=== PATIENT | female | born 1995 | race Caucasian/White ===

== ENCOUNTER → 2020-09-23 12:35 | Outpatient (CLI) | payer OTHER, SELFPAY ==
--- NOTE | ~2020-09-23 | XR_ITS ---
EXAMINATION: XR foot LT 2V EXAM DATE: 09/23/2020 12:56 INDICATION: Initial encounter following injury, with pain of the left foot. TECHNIQUE: Frontal and lateral projections of the left foot. There is no prior study for comparison . FINDINGS: There are no acute left foot fractures or dislocations identified. There is no subcutaneou s gas. The soft tissue is unremarkable. There are no radiopaque foreign bodies. IMPRESSION: 1. Unremarkable XR foot LT 2V exam. Reviewed, dictated and finalized at location B.
== END ==
PROVIDERS: PCP Family Medicine; Visit Provider Physician Assistant
DX: S99.929A Unspecified injury of unspecified foot, initial encounter (principal)
CPT/HCPCS: 73620

== ENCOUNTER → 2021-01-22 07:51 | Outpatient (CLI) | payer OTHER, SELFPAY ==
[2021-01-22 18:14] LABS: SARS-CoV-2 RNA PCR Negative
== END ==
PROVIDERS: PCP Family Medicine; Visit Provider Physician Assistant
DX: R05 Cough (principal); Z20.822 Contact with and (suspected) exposure to COVID-19
CPT/HCPCS: C9803; U0003; U0005

== ENCOUNTER 2023-04-14 09:46 | Outpatient (RCR) | payer BC, SELFPAY ==
--- NOTE | 2023-04-14 10:51 | OPREHPOC ---
Outpatient Therapy Plan of Care This is a Multidisciplinary Plan of Care that may contain components documented by all disciplines (PT, OT, and ST.) PT Problem 1 PT Problem #1 Knowledge Deficit PT Goal 1 Goal 1* indep with HEP 2* good posture of neck during sessions PT Problem 2 PT Problem #2 Pain PT Goal 1 Goal 1* pt report pain of 2/10 at worst in neck PT Problem 3 PT Problem #3 Impaired Vestibular Syste PT Goal 1 Goal pt perform without any issues: 1* turn head R/L, 3x with walking 50' 2* pick item up off floor 3* 360' turn to R x1 rep 4* 360' turn to L x1 rep 5* Dizziness Handicap Index score of 20/100 6* further assessment of vestibular system as indicated with progression of treatment
--- NOTE | 2023-04-14 10:51 | PTOPEVAL1 ---
Assessment and note entered by Jessica Haynes, PT Evaluation Information Assessment Status Evaluation Diagnosis dizziness Onset Mar 22, 2023 Subjective Information In July 2022: was dizzy about one week, then off/ on random since then; had another week of issues at start of month- woke up from sleep and was dizzy; have been sleeping with several pillows to prop her head up; hearing is OK, little ear pressure right now; does have sharp, achy pain in both ears, can hear crackle and pops sounds; not had hearing test; have contacts, vision is OK, but with vertigo, lights bother me--overhead lights and drive at night; no allergies or sinus infections saw ENT- sent for physical therapy, given meclazine and steroid, allergy meds- to dry out ears increase with leaning over to pet dog and when tilt head backwards; Symptoms: dizzy ease symptoms: hold still; after steroids--did not have any problems; L[facility] [place] testing: to R negative- report pressure in R ear, no nystagmus/ to L negative; Horizontal canal testing: to R and L negative, no nystagmus; Eye tracking & gaze stabilization negative. 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
--- NOTE | 2023-05-24 11:54 | PTOPDC ---
Assessment and note entered by Jessica Haynes, PT Discharge Information Assessment PT Clinical Summary Sina attended the PT evaluation on 04-14-23 for vestibular diagnosis. She did not return for any further treatment, therefore she will be discharged at this time. The goals were not addressed. Plan of Care PT Services Indicated No
== END 2023-05-24 12:41 | disposition home or self-care (01) ==
LOC: ANHPT 09:46
PROVIDERS: PCP Family Medicine; Visit Provider Physician Assistant
DX: R42 Dizziness and giddiness (principal)
CPT/HCPCS: 97161; 97530

== ENCOUNTER 2023-08-04 21:38 | Emergency (ER) | payer BC, SELFPAY ==
[2023-08-04 21:48] VITALS: BP 144/105; PULSE 106; RESP 15; TEMP 36.4; O2SAT 100
--- NOTE | 2023-08-04 22:59 | ECG_ITS ---
Measurements Intervals [place] Rate: 85 P: 35 [place]: 147 QRS: -29 QRSD: 91 T: 25 QT: 358 QTc: 427 Interpretive Statements SINUS RHYTHM DELAYED PRECORDIAL R/S TRANSITION LOW QRS VOLTAGE IN PRECORDIAL LEADS BORDERLINE ECG NO PREVIOUS ECG AVAILABLE FOR COMPARISON Electronically Signed On 08-05-2023 7:51:22 CDT by Salo Rodriguez D.O.
--- NOTE | 2023-08-04 23:05 | ED.GENADULT ---
HPI - General Adult General Chief complaint: Recheck/Abnormal Lab/Rx Stated complaint: HTN Time Seen by Provider: 08/04/23 22:52 History of Present Illness HPI narrative: Patient 28-year-old female who presents emerged from with chief complaint of hypertension. Patient reports that she has prior history of hypertension reports that she started Topamax and some vitamin and mineral supplementation about a week ago patient states that she noticed that her blood pressure has been running higher even though she is taking her labetalol. The patient reports that she has had having any chest pain denies shortness of breath denies headache focal weakness or other complaint. The patient states that she called her clinic business manager who told her that she should not be concerned and then called her primary doctor who recommended that she come to the emergency department. The patient states that other than the blood pressure being elevated she feels okay at this time. Related Data Home Medications Medication Instructions Recorded Confirmed meclizine 25 mg tablet 25 mg PO BID PRN 03/29/23 06/26/23 cetirizine 10 mg tablet 10 mg PO DAILY PRN 04/11/23 06/26/23 selenium 50 mcg tablet 100 mcg PO DAILY 04/11/23 06/26/23 Allergies Allergy/AdvReac Type Severity Reaction Status Date / Time ciprofloxacin Allergy Unknown Rash Verified 06/26/23 15:47 Sulfa (Sulfonamide Allergy Unknown rash Verified 06/26/23 15:47 Antibiotics) Review of Systems Review of Systems: A 10 system review of systems was completed on the patient and is negative except for what is stated in the HPI. Nursing and ancillary documentation was reviewed. PMFSH Past Medical History Medical History Hypertension Family History Family History Grandparent Hypertension Depression Sibling Hypertension Father Hypertension Grandparent Diabetes mellitus Hypertension Depression Social History Social History Smoking status: Never smoker Second hand tobacco smoke exposure: No Alcohol intake: current Alcohol use details: rare Substance use: never Substance use type: does not use Lack of Transportation: No Lack of Food: Never True Current Housing: I Have Housing Concerned About Future Housing: No Difficulty Paying Gas/Electric Bills: No Difficulty Paying for Meds: No Currently Unemployed: No Education: High School Diploma/GED Difficulty w/ Childcare or Family Care: No Living arrangements: alone Occupation/Education: occupation Gender identity (if verbalized by the patient): Female Exam Narrative: GENERAL: Well-appearing, well-nourished, and in no acute distress. HEAD: Normocephalic, atraumatic. EYES: PERRLA and EOMI. ENT: Nares clear, no rhinorrhea or epistaxis. Mucous membranes moist. NECK: Supple. CHEST: Clear to auscultation. No respiratory distress. HEART: Regular rate and rhythm. No murmur heard. Normal peripheral pulses. ABDOMEN: Soft, nontender, nondistended, normal active bowel sounds. EXTREMITIES: Normal range of motion. No edema. SKIN: Warm, dry, no rash. NEURO: No focal deficits. Alert and oriented x3. PSYCH: Normal mood and affect. Course Vital Signs Vital signs: Vital Signs Temperature 36.4 C L 08/04/23 21:48 Pulse Rate 106 H 08/04/23 21:48 Respiratory Rate 15 08/04/23 21:48 Blood Pressure 144/105 H 08/04/23 21:48 Pulse Oximetry 100 08/04/23 21:48 Temperature 36.4 C L 08/04/23 21:48 Pulse Rate 74 08/05/23 02:46 Respiratory Rate 18 08/05/23 02:46 Blood Pressure 120/90 08/05/23 02:46 Pulse Oximetry 99 08/05/23 02:46 Medical Decision Making MDM Narrative Medical decision making narrative: Differential diagnosis includes hypertensive crisis, electrolyte abnormality, es
[2023-08-04 23:16] VITALS: BP 127/88; PULSE 79; RESP 23; O2SAT 100
[2023-08-04 23:18] LABS: Basophils Percent Auto 0.7 % (0.2-1.2); Eosinophils Absolute Auto 0.1 K/mm3 (0-0.3); Eosinophils Percent Auto 1.6 % (0-4.4); Hematocrit 42.6 % (37.0-47.0); Hemoglobin 13.6 g/dL (12.0-15.0); Immature Granulocyte Absolute 0.02 K/mm3 (0.00-0.031); Immature Granulocyte Percent A 0.4 % (0-0.5); Lymphocytes Absolute Auto 2.04 K/mm3 (0.9-3.2); Lymphocytes Percent Auto 35.8 % (18.3-44.2); Mean Corpuscular HGB Conc 31.9 g/dl (32-36); Mean Corpuscular Hemoglobin 28.9 pg (26-34); Mean Corpuscular Volume 90.4 fl (80-100); Mean Platelet Volume 9.3 fl (7.4-10.4); Monocytes Absolute Auto 0.4 K/mm3 (0.1-0.6); Monocytes Percent Auto 7.2 % (2.6-8.5); Neutrophils Absolute Auto 3.1 K/mm3 (1.3-6.7); Neutrophils Percent Auto 54.3 % (45.5-73.1); Platelet Count Result 306 k/mm3 (150-375); Red Blood Count 4.71 M/mm3 (4.2-5.4); Red Cell Distribution Width 12.2 % (11.5-14.5); White Blood Count 5.7 K/mm3 (4.5-10.0)
[2023-08-04 23:30] LABS: Alanine Aminotransferase 31 U/L (6-35); Albumin Level 4.8 g/dL (3.5-5.1); Alkaline Phosphatase 81 U/L (38-126); Anion Gap 9 mmol/L (8-16); Aspartate Amino Transferase 28 U/L (14-36); Bilirubin,Total 0.7 mg/dL (0.2-1.3); Blood Urea Nitrogen 10 mg/dL (7-17); Calcium 10.2 mg/dL (8.4-10.2); Carbon Dioxide 23 mmol/L (22-30); Chloride 106 mmol/L (98-107); Estimated CRCL calculation 108 ml/min; Estimated Glomerular Filt Rate > 60; Glucose 120 mg/dL (65-110); Potassium 3.9 mmol/L (3.4-5.0); Sodium 138 mmol/L (137-145)
[2023-08-04 23:31] VITALS: BP 121/90; PULSE 81; RESP 19; O2SAT 99
[2023-08-04 23:46] VITALS: BP 121/86; PULSE 85; RESP 18; O2SAT 100
[2023-08-05] VITALS (10 sets, daily range): BP systolic 109–129; BP diastolic 81–98; PULSE 74–103; RESP 15–25; O2SAT 93–100
[2023-08-05 00:41] LABS: Appearance Urine Clear (Clear); Bilirubin Urine Negative (Negative); Blood Urine Negative (Negative); Color Urine Yellow (Yellow); Glucose Urine UA Negative (Negative); Ketones Urine Negative (Negative); Leukocyte Esterase Ur Negative LEU/UL (Negative); Nitrate Urine Negative (Negative); Protein Urine Negative (Negative); Urobilinogen Urine 0.2 mg/dL (<2.0); pH Urine 6.5 (5.0-9.0)
[2023-08-05 00:43] LABS: Specific Grav Ur 1.003 (1.001-1.035)
[2023-08-05 01:08] LABS: Add Urine Microscopic? NO
== END 2023-08-05 03:49 | disposition home or self-care (01) ==
PROVIDERS: Emergency Provider Emergency Medicine; PCP Family Medicine
DX: I10 Essential (primary) hypertension (principal); R94.31 Abnormal electrocardiogram [ECG] [EKG]
CPT/HCPCS: 36415; 80053; 81025; 85025; 93005; 99283

== ENCOUNTER 2023-12-01 10:27 | Outpatient (CLI) | payer BC, SELFPAY ==
[2023-12-01 11:09] LABS: Hemoglobin A1C 5.4 % (<5.7)
[2023-12-01 11:37] LABS: Alanine Aminotransferase 23 U/L (6-35); Albumin Level 4.8 g/dL (3.5-5.1); Alkaline Phosphatase 71 U/L (38-126); Anion Gap 13 mmol/L (4-12); Aspartate Amino Transferase 25 U/L (14-36); Bilirubin,Total 0.5 mg/dL (0.2-1.3); Blood Urea Nitrogen 13 mg/dL (7-17); Calcium 9.8 mg/dL (8.4-10.2); Carbon Dioxide 25 mmol/L (22-30); Chloride 103 mmol/L (98-107); Estimated Glomerular Filt Rate > 60; Glucose 113 mg/dL (65-110); Potassium 4.2 mmol/L (3.4-5.0); Sodium 141 mmol/L (137-145)
== END 2023-12-01 10:28 | disposition home or self-care (01) ==
LOC: ANHLAB 10:28
PROVIDERS: PCP Family Medicine; Visit Provider Physician Assistant Medical
DX: R73.03 Prediabetes (principal); E78.2 Mixed hyperlipidemia
CPT/HCPCS: 36415; 80053; 83036; 86337

== ENCOUNTER 2023-12-01 15:49 | Emergency (ER) | payer BC, SELFPAY ==
[2023-12-01 16:14] VITALS: BP 142/90; PULSE 78; RESP 16; TEMP 36.5; O2SAT 100
[2023-12-01 16:20] LABS: Glucose Point of Care 118 mg/dl (65-105)
--- NOTE | 2023-12-01 17:37 | ED.GENADULT ---
HPI - General Adult General Chief complaint: Recheck/Abnormal Lab/Rx <Malia Brandon September MEDICAL APPOINTMENT SCHEDULER - Last Filed: 12/01/23 17:50> Stated complaint: low blood sugar, can't control it <Malia Brandon September MEDICAL APPOINTMENT SCHEDULER - Last Filed: 12/01/23 17:50> Time Seen by Provider: 12/01/23 17:37 <Malia Brandon September MEDICAL APPOINTMENT SCHEDULER - Last Filed: 12/01/23 17:50> Focused HPI: Sina Minaya is a 28 y/o female who presents with reports of waking up today with a low blood sugar of 45, she states that she woke up feeling tired/ hot / clammy / light headed and legs are jelly - ( one of her pets was diabetic sp she has a glucometer) She states that she felt this way again this past Monday. She had another drop today to 56 She also states she has been having right lower back pain that started today. GENERAL: Well-appearing, well-nourished, and in no acute distress. HEAD: Normocephalic, atraumatic. CHEST: Clear to auscultation. ?No respiratory distress. HEART: Regular rate and rhythm.? NEURO: ?Alert and oriented x3. Patient screened in triage and initial orders placed.? ?Additional care and disposition to be based upon?diagnostic testing and treatment. <Malia Brandon September, MEDICAL APPOINTMENT SCHEDULER - Last Filed: 12/01/23 17:50> History of Present Illness HPI narrative: 28-year-old female present to the emergency department for evaluation of 2 episodes of hypoglycemia are measured by her home glucometer. Patient states that the episode this morning was associated with her feeling tired hot clammy lightheaded and weak. Patient states that she checked her blood sugar and it was 45. Patient presented the emergency department for evaluation and patient had no episodes of hypoglycemia. Patient is not diabetic and patient has not been on any diabetic or weight loss medications. <Mark Porter MD - Last Filed: 12/02/23 04:34> Related Data Home medications: Home Medications Medication Instructions Recorded Confirmed meclizine 25 mg tablet 25 mg PO BID PRN 03/29/23 12/01/23 cetirizine 10 mg tablet 10 mg PO DAILY PRN 04/11/23 12/01/23 selenium 50 mcg tablet 100 mcg PO DAILY 04/11/23 12/01/23 <Malia Conti, MEDICAL APPOINTMENT SCHEDULER - Last Filed: 12/01/23 17:50> Allergies/adverse reactions: Allergies Allergy/AdvReac Type Severity Reaction Status Date / Time ciprofloxacin Allergy Unknown Rash Verified 12/01/23 15:51 Sulfa (Sulfonamide Allergy Unknown rash Verified 12/01/23 15:51 Antibiotics) <Malia Conti, MEDICAL APPOINTMENT SCHEDULER - Last Filed: 12/01/23 17:50> Review of Systems Review of Systems: All systems reviewed & are unremarkable except as noted in HPI and below <Mark Porter MD - Last Filed: 12/02/23 04:34> [facility] Past Medical History Medical History: Medical History Hypertension <Malia Conti MEDICAL APPOINTMENT SCHEDULER - Last Filed: 12/01/23 17:50> Family History Family History: Family History Grandparent Hypertension Depression Sibling Hypertension Father Hypertension Grandparent Diabetes mellitus Hypertension Depression <Malia Conti, MEDICAL APPOINTMENT SCHEDULER - Last Filed: 12/01/23 17:50> Social History Social History: Social History Smoking status: Never smoker Second hand tobacco smoke exposure: No Alcohol intake: current Alcohol use details: rare Substance use: never Substance use type: does not use Lack of Transportation: No Lack of Food: Never True Current Housing: I Have Housing Concerned About Future Housing: No Difficulty Paying Gas/Electric Bills: No Difficulty Paying for Meds: No Currently Unemployed: No Education: High School Diploma/GED Difficulty w/ Childcare or Family Care: No Living arrangements: alone Occupation/Education: occupation Gender identity (if verbalized by the patient): Female <Malia Conti MEDICAL APPOINTMENT SCHEDULER - Last Filed: 12/01/23 17:50> Exam
[2023-12-01 19:20] LABS: Glucose Point of Care 97 mg/dl (65-105)
[2023-12-01 19:35] VITALS: BP 145/101; PULSE 97; RESP 19; O2SAT 98
[2023-12-01 20:03] LABS: Basophils Percent Auto 0.5 % (0.2-1.2); Eosinophils Absolute Auto 0.1 K/mm3 (0-0.3); Eosinophils Percent Auto 1.3 % (0-4.4); Hematocrit 38.8 % (37.0-47.0); Hemoglobin 12.8 g/dL (12.0-15.0); Immature Granulocyte Absolute 0.01 K/mm3 (0.00-0.031); Immature Granulocyte Percent A 0.2 % (0-0.5); Lymphocytes Absolute Auto 1.87 K/mm3 (0.9-3.2); Lymphocytes Percent Auto 30.1 % (18.3-44.2); Mean Corpuscular Hemoglobin 29.2 pg (26-34); Mean Corpuscular Volume 88.6 fl (80-100); Mean Platelet Volume 9.4 fl (7.4-10.4); Monocytes Absolute Auto 0.4 K/mm3 (0.1-0.6); Monocytes Percent Auto 6.9 % (2.6-8.5); Neutrophils Absolute Auto 3.8 K/mm3 (1.3-6.7); Platelet Count Result 305 k/mm3 (150-375); Red Blood Count 4.38 M/mm3 (4.2-5.4); Red Cell Distribution Width 13.4 % (11.5-14.5); White Blood Count 6.2 K/mm3 (4.5-10.0)
[2023-12-01 20:05] LABS: Appearance Urine Clear (Clear); Bilirubin Urine Negative (Negative); Blood Urine Negative (Negative); Color Urine Yellow (Yellow); Glucose Urine UA Negative (Negative); Ketones Urine Negative (Negative); Leukocyte Esterase Ur Negative LEU/UL (Negative); Nitrate Urine Negative (Negative); Protein Urine Negative (Negative); Specific Grav Ur 1.006 (1.001-1.035); Urobilinogen Urine 0.2 mg/dL (<2.0)
[2023-12-01 20:06] LABS: Add Urine Microscopic? NO
[2023-12-01 20:16] LABS: Alanine Aminotransferase 21 U/L (6-35); Albumin Level 4.9 g/dL (3.5-5.1); Alkaline Phosphatase 68 U/L (38-126); Anion Gap 12 mmol/L (4-12); Aspartate Amino Transferase 22 U/L (14-36); Bilirubin,Total 0.5 mg/dL (0.2-1.3); Blood Urea Nitrogen 14 mg/dL (7-17); Calcium 9.5 mg/dL (8.4-10.2); Carbon Dioxide 23 mmol/L (22-30); Chloride 105 mmol/L (98-107); Estimated CRCL calculation 119 ml/min; Estimated Glomerular Filt Rate > 60; Glucose 99 mg/dL (65-110); Potassium 3.9 mmol/L (3.4-5.0); Sodium 140 mmol/L (137-145)
[2023-12-01 20:37] LABS: Glucose Point of Care 102 mg/dl (65-105)
[2023-12-01 21:49] VITALS: BP 122/74; PULSE 88; RESP 16; TEMP 36.8; O2SAT 100
== END 2023-12-01 21:50 | disposition home or self-care (01) ==
LOC: ANHED 21:39
PROVIDERS: Nurse Practitioner Family; Emergency Provider Emergency Medicine; PCP Family Medicine
DX: E16.2 Hypoglycemia, unspecified (principal)
CPT/HCPCS: 36415; 80053; 81003; 82948; 83036; 85025; 86337; 99283

== ENCOUNTER 2025-05-02 14:14 | Emergency (ER) | payer BC, SELFPAY ==
[2025-05-02] VITALS (9 sets, daily range): BP systolic 110–140; BP diastolic 80–103; PULSE 85–118; RESP 16–20; TEMP 36.5–36.8; O2SAT 98–100
--- NOTE | ~2025-05-02 | US_ITS ---
EXAMINATION: Ultrasound uterus OB, Limited: DATE: 05/02/2025 INDICATION: 30-year-old with lower abdominal pain. Last menstrual period on 01/03/2025. Quantitative serum hCG level is pending... TECHNIQUE: Transabdominal and transvaginal pelvic ultrasound with Doppler.. COMPARISON: None. FINDINGS: Bulky uterus measuring the length of 8 cm and a width of 4 cm. No intrauterine gestational sac is noted. Severe endometrial thickening measuring 2.5 cm in thickness. Possible bicornuate uterus. The ovaries are normal in size. Tiny free fluid in the cul-de-sac. IMPRESSION: 1. No well-defined contrite trying gestational sac is seen. 2. 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 No definite adnexal mass. Tiny free fluid. Possibility of ectopic with endometrial thickening secondary to ectopic should be considered. Please correlate with quantitative hCG level. Ectopic is not ruled out although there is no direct evidence of direct. 3. Above mentioned findings were conveyed to attending physician by phone call at 6:46 PM. Reviewed, dictated and finalized at location T. ENGINEER IMPRESSION: 1. No well-defined contrite trying gestational sac is seen. 2. 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 No definite a dnexal mass. Tiny free fluid. Possibility of ectopic with endometrial thickening secondary to ectopic should be considered. Please correla te with quantitative hCG level. Ectopic is not ruled out although the re is no direct evidence of direct. 3. Above mentioned findings were conveyed to attending physician by phone call at 6:46 PM.
--- NOTE | 2025-05-02 14:15 | ECG_ITS ---
Test Date: 2025-05-02 14:31:08 Measurements Intervals [place] Rate: 122 P: 38 AL: 150 QRS: -33 QRSD: 90 T: 34 QT: 318 QTc: 454 Interpretive Statements SINUS TACHYCARDIA LOW QRS VOLTAGE IN PRECORDIAL LEADS CANNOT R/O SEPTAL INFARCT, AGE INDETERMINATE BASELINE ARTIFACT- I, II, III, AVR, AVL, AVF, V1 No previous ECG available for comparison Electronically Signed On 05-02-2025 14:37:05 [employer] by Salo Rodriguez D.O.
[2025-05-02 15:44] LABS: Hematocrit 44.4 % (37.0-47.0); Hemoglobin 14.9 g/dL (12.0-15.0); Immature Granulocyte Percent A 0.4 % (0-0.5); Lymphocytes Absolute Auto 1.49 K/mm3 (0.9-3.2); Mean Corpuscular HGB Conc 33.6 g/dl (32-36); Mean Corpuscular Hemoglobin 30.3 pg (26-34); Mean Corpuscular Volume 90.2 fl (80-100); Nucleated Red Blood Cells Absolute Auto 0.000 K/mm3 (0.0-0.012); Nucleated Red Blood Cells Perc 0.0 % (0.0-0.2); Platelet Count Result 276 k/mm3 (150-375); Red Blood Count 4.92 M/mm3 (4.2-5.4); White Blood Count 6.9 K/mm3 (4.5-10.0)
[2025-05-02 15:59] LABS: Alanine Aminotransferase 33 U/L (6-35); Albumin Level 4.7 g/dL (3.5-5.1); Alkaline Phosphatase 78 U/L (38-126); Anion Gap 7 mmol/L (4-12); Aspartate Amino Transferase 27 U/L (14-36); Bilirubin,Total 0.5 mg/dL (0.2-1.3); Blood Urea Nitrogen 11 mg/dL (7-17); Calcium 10.0 mg/dL (8.4-10.2); Carbon Dioxide 25 mmol/L (22-30); Chloride 106 mmol/L (98-107); Estimated CRCL calculation 82 ml/min; Estimated Glomerular Filt Rate 60; Glucose 111 mg/dL (65-110); Lipase 63 U/L (23-300); Potassium 4.2 mmol/L (3.4-5.0); Sodium 138 mmol/L (137-145); Total Protein 8.6 g/dL (6.3-8.2)
[2025-05-02 16:04] LABS: INR 1.1; Prothrombin Time 13.7 Seconds (11.1-14.7)
[2025-05-02 16:05] LABS: Partial Thromboplastin Time 29.0 Seconds (22.3-36.8)
[2025-05-02 16:11] LABS: Troponin I < 0.012 ng/mL (0.000-0.034)
--- NOTE | 2025-05-02 16:56 | ECG_ITS ---
Test Date: 2025-05-02 17:30:11 Measurements Intervals [place] Rate: 105 P: 41 FL: 132 QRS: -42 QRSD: 99 T: 24 QT: 336 QTc: 444 Interpretive Statements SINUS TACHYCARDIA LEFT AXIS DEVIATION INCOMPLETE RIGHT BUNDLE BRANCH BLOCK LOW QRS VOLTAGE IN PRECORDIAL LEADS POSSIBLE ANTERIOR MYOCARDIAL INFARCTION , PROBABLY OLD BASELINE ARTIFACT- AVF ABNORMAL ECG Compared to ECG 05/02/2025 14:31:08 HEART RATE HAS DECREASED Electronically Signed On 05-02-2025 18:53:44 NURSING SCHEDULER by Salo Rodriguez D.O.
--- NOTE | 2025-05-02 17:33 | ED_ITS ---
HPI - Chest Pain General Chief Complaint: Chest Pain <JERRY Casey Last Filed: 05/02/25 17:49> Stated Complaint: 5 weeks preg. cramping, SOB, CP <Anuja Lozada PA-C - Last Filed: 05/02/25 17:49> Time Seen by Provider: 05/02/25 17:33 <Anuja Lozada PA-C - Last Filed: 05/02/25 17:49> Focused HPI: Patient is a 30 y/o female who presents to the ED with c/o anxiety. Patient reports she has been feeling very anxious /stressed over the past 1 week since finding out she was last Monday. LNMP 03/29. . Scheduled to see Khushboo jaramillo/ NATACHA on May 26. Has Hx of anxiety, but states it is usually very mild. Does not currently take medication for this. C/o lightheadedness, chest tightness, intermittent spots in her vision, intermittent dizziness. Denies significant SOB. Also reports intermittent pelvic cramping. Denies bleeding. GENERAL: Anxious-appearing, obese with BMI of 38.3, and in no acute distress. HEAD: Normocephalic, atraumatic. CHEST: Clear to auscultation. ?No respiratory distress. HEART: Regular rate and rhythm.? NEURO: ?Alert and oriented x3. Patient screened in triage and initial orders placed.? ?Additional care and disposition to be based upon?diagnostic testing and treatment. <Anuja Lozada PA-C - Last Filed: 05/02/25 17:49> Source: patient <JERRY Casey Last Filed: 05/02/25 17:49> Mode of arrival: ambulatory <JERRY Casey Last Filed: 05/02/25 17:49> Limitations: no limitations <JERRY Casey Last Filed: 05/02/25 17:49> History of Present Illness HPI narrative: Agree with the HPI. She reports that her symptoms are better on my evaluation. <German Oconnell DO - Last Filed: 05/03/25 03:10> Related Data Home Medications: Home Medications ?Medication ?Instructions ?Recorded ?Confirmed ?Last Taken ?Type meclizine 25 mg tablet 25 mg PO BID PRN 03/29/23 Unknown History cetirizine 10 mg tablet 10 mg PO DAILY PRN 04/11/23 02/05/25 Unknown History <Anuja Lozada PA-C - Last Filed: 05/02/25 17:49> Allergies/Adverse Reactions: Allergies Allergy/AdvReac Type Severity Reaction Status Date / Time ciprofloxacin Allergy Unknown Rash Verified 05/02/25 14:21 Sulfa (Sulfonamide Allergy Unknown rash Verified 05/02/25 14:21 Antibiotics) <Anuja Lozada PA-C - Last Filed: 05/02/25 17:49> Review of Systems 2 Review of Systems: Gen.: Denies fevers or chills Eyes: Denies eye pain or visual change ENT: Denies congestion Respiratory: As per HPI CV: As per HPI GI: Denies abdominal pain nausea, emesis or diarrhea denies burning, urgency, frequency or hematuria Musculoskeletal: Denies back pain or muscle pain Neuro: Denies numbness, tingling, weakness or focal weakness Skin: Denies rash Except as documented, all other systems reviewed and negative <German Oconnell DO - Last Filed: 05/03/25 03:10> [facility] Past Medical History Medical History: Medical History Hypertension <JERRY Casey Last Filed: 05/02/25 17:49> Family History Family History: Family History Grandparent Hypertension Depression Sibling Hypertension Father Hypertension Grandparent Diabetes mellitus Hypertension Depression <Anuja Lozada PA-C - Last Filed: 05/02/25 17:49> Social History Social History: Social History Smoking status: Never smoker Second hand tobacco smoke exposure: No Alcohol intake: current Alcohol use details: rare Substance use: never Substance use type: does not use Lack of Transportation: No Lack of Food: Never True Current Housing: I Have Housing Concerned About Future Housing: No Difficulty Paying Gas/Electric Bills: No Difficulty Paying for Meds: No Currently Unemployed: No Education: High School Diploma/GED Difficulty w/ Childcare or Family Care: No Living arrangements: alone Occupation/Education: occupation Gender identity (if verbalized by the patient): Female <Anuja Lozada PA-C - Last Filed: 05/02/25 17:49> Exam 2 Narrative: APPEARANCE: No acute distress, nontoxic, resting in bed EYES: EOMI HEENT: Normocephalic, atraumatic, OMM RESPIRATORY: No respiratory distress Clear to auscultation bilaterally with no rhonchi wheezing or rales. CARDIOVASCULAR: Regular rate and rhythm without murmurs rubs or gallops. ABDOMINAL: Soft, nontender, nondistended, no rebound or guarding MUSCULOSKELETAl: Moves all extremities. No clubbing, cyanosis or edema. NEURO: Awake and alert. Following commands, speech normal, no focal deficits SKIN:: Warm, dry. No rashes lesions or abrasions PSYCHIATRIC: Normal affect/mood, <German Oconnell DO - Last Filed: 05/03/25 03:10> Course Vital Signs Vital signs: Vital Signs Temperature 98 F 05/02/25 14:15 Pulse Rate 118 H 05/02/25 14:15 Respiratory Rate 16 05/02/25 14:15 Blood Pressure 140/90 05/02/25 14:15 Pulse Oximetry 100 05/02/25 14:15 Oxygen Delivery Room Air 05/02/25 14:15 Temperature 97.7 F 05/02/25 20:06 Pulse Rate 94 05/02/25 21:40 Respiratory Rate 17 05/02/25 21:40 Blood Pressure 114/85 05/02/25 21:40 Pulse Oximetry 100 05/02/25 21:40 Oxygen Delivery Room Air 05/02/25 20:09 <Anuja Lozada PA-C - Last Filed: 05/02/25 17:49> Vital Signs Temperature 98 F 05/02/25 14:15 Pulse Rate 118 H 05/02/25 14:15 Respiratory Rate 16 05/02/25 14:15 Blood Pressure 140/90 05/02/25 14:15 Pulse Oximetry 100 05/02/25 14:15 Oxygen Delivery Room Air 05/02/25 14:15 Temperature 97.7 F 05/02/25 20:06 Pulse Rate 94 05/02/25 21:40 Respiratory Rate 17 05/02/25 21:40 Blood Pressure 114/85 05/02/25 21:40 Pulse Oximetry 100 05/02/25 21:40 Oxygen Delivery Room Air 05/02/25 20:09 <German Oconnell DO - Last Filed: 05/03/25 03:10> [facility] MDM Narrative Medical decision making narrative: MSE by RUSSEL in triage <Anuja Lozada PA-C - Last Filed: 05/02/25 17:49> MSE by RUSSEL in triage 30-year-old female Presenting for chest pain and shortness of breath. On initial evaluation patient was in no acute distress afebrile, hemodynamic stable. Differentials include but are not limited to: ACS, PE, PNA, bronchitis, costochondritis, pleurisy, viral syndrome, GERD, , miscarriage, ectopic Notable exam findings: Mild tachycardia with her in the low 100s. Abdomen soft and nontender. Heart and lungs clear. I personally reviewed the patient's lab result. Notable lab findings: CBC and CMP without significant abnormalities. Troponin negative. Repeat troponin negative. Lipase within normal limits. Beta-hCG elevated to 478. D-dimer negative OB ultrasound did reveal no gestational sac within the uterus. There was potential endometrial thickening and a tiny amount of free fluid that could be consistent with an ectopic . Patient was not having any abdominal pain and was hemodynamically stable. She was feeling better my evaluation. It is possible the patient has an ectopic . She was scheduled for a repeat HCG 2 days from now to trend. She was advised to call her Ob in the next couple days for evaluation. Regarding her chest pain, her symptoms have resolved on my re-evaluation the D-dimer is negative so PE is oral now. No evidence of ACS at this time. Patient was agreeable to this plan. Given strict return precautions. <German Oconnell DO - Last Filed: 05/03/25 03:10> Differential Diagnosis Differential Diagnosis: ACS, PE, PNA, bronchitis, costochondritis, pleurisy, viral syndrome, GERD, , miscarriage, ectopic <German Oconnell DO - Last Filed: 05/03/25 03:10> Lab Data [facility] Lab Attestation statement: I personally reviewed the patient's lab results. <German Oconnell DO - Last Filed: 05/03/25 03:10> Result diagrams: 05/02/25 15:34 05/02/25 15:34 <Anuja Lozada PA-C - Last Filed: 05/02/25 17:49> Labs: Lab Results 05/02/25 05/02/25 05/02/25 Range/Units 15:34 15:35 20:22 WBC 6.9 (4.5-10.0) K/mm3 RBC 4.92 (4.2-5.4) M/mm3 Hgb 14.9 (12.0-15.0) g/dL Hct 44.4 (37.0-47.0) % MCV 90.2 (80-100) fl MCH 30.3 (26-34) pg MCHC 33.6 (32-36) g/dl RDW 12.5 (11.5-14.5) % Plt Count 276 (150-375) k/mm3 MPV 9.0 (7.4-10.4) fl Immature Gran % (Auto) 0.4 (0-0.5) % Neut % (Auto) 69.0 (45.5-73.1) % Lymph % (Auto) 21.7 (18.3-44.2) % [place] % (Auto) 7.4 (2.6-8.5) % Eos % (Auto) 1.2 (0-4.4) % Baso % (Auto) 0.3 (0.2-1.2) % Lymph # (Auto) 1.49 (0.9-3.2) K/mm3 [place] # (Auto) 0.5 (0.1-0.6) K/mm3 Eos # (Auto) 0.1 (0-0.3) K/mm3 Baso # (Auto) 0.0 (0.0-0.1) K/mm3 Abs Immat Gran (auto) 0.03 (0.00-0.031) K/mm3 Absolute Neuts (auto) 4.7 (1.3-6.7) K/mm3 Absolute Nucleated RBC 0.000 (0.0-0.012) K/mm3 Nucleated RBC % 0.0 (0.0-0.2) % PT 13.7 (11.1-14.7) Seconds INR 1.1 APTT 29.0 (22.3-36.8) Seconds D-Dimer < 0.27 (<0.48) ug/mL Sodium 138 (137-145) mmol/L Potassium 4.2 (3.4-5.0) mmol/L Chloride 106 (98-107) mmol/L Carbon Dioxide 25 (22-30) mmol/L Anion Gap 7 (4-12) mmol/L BUN 11 (7-17) mg/dL Creatinine 1.08 H (0.7-1.0) mg/dL Estim Creat Clear Calc 82 ml/min Estimated GFR 60 (59 - ) Glucose 111 H (65-110) mg/dL Calcium 10.0 (8.4-10.2) mg/dL Magnesium 2.3 (1.6-2.3) mg/dL Total Bilirubin 0.5 (0.2-1.3) mg/dL AST 27 (14-36) U/L ALT 33 (6-35) U/L Alkaline Phosphatase 78 (38-126) U/L Troponin I < 0.012 < 0.012 (0.000-0.034) ng/mL Total Protein 8.6 H (6.3-8.2) g/dL Albumin 4.7 (3.5-5.1) g/dL Lipase 63 (23-300) U/L Beta HCG, Quant 478.72 mIU/ML <Anuja Lozada PA-C - Last Filed: 05/02/25 17:49> Lab Results 05/02/25 05/02/25 05/02/25 Range/Units 15:34 15:35 20:22 WBC 6.9 (4.5-10.0) K/mm3 RBC 4.92 (4.2-5.4) M/mm3 Hgb 14.9 (12.0-15.0) g/dL Hct 44.4 (37.0-47.0) % MCV 90.2 (80-100) fl MCH 30.3 (26-34) pg MCHC 33.6 (32-36) g/dl RDW 12.5 (11.5-14.5) % Plt Count 276 (150-375) k/mm3 MPV 9.0 (7.4-10.4) fl Immature Gran % (Auto) 0.4 (0-0.5) % Neut % (Auto) 69.0 (45.5-73.1) % Lymph % (Auto) 21.7 (18.3-44.2) % [place] % (Auto) 7.4 (2.6-8.5) % Eos % (Auto) 1.2 (0-4.4) % Baso % (Auto) 0.3 (0.2-1.2) % Lymph # (Auto) 1.49 (0.9-3.2) K/mm3 [place] # (Auto) 0.5 (0.1-0.6) K/mm3 Eos # (Auto) 0.1 (0-0.3) K/mm3 Baso # (Auto) 0.0 (0.0-0.1) K/mm3 Abs Immat Gran (auto) 0.03 (0.00-0.031) K/mm3 Absolute Neuts (auto) 4.7 (1.3-6.7) K/mm3 Absolute Nucleated RBC 0.000 (0.0-0.012) K/mm3 Nucleated RBC % 0.0 (0.0-0.2) % PT 13.7 (11.1-14.7) Seconds INR 1.1 APTT 29.0 (22.3-36.8) Seconds D-Dimer < 0.27 (<0.48) ug/mL Sodium 138 (137-145) mmol/L Potassium 4.2 (3.4-5.0) mmol/L Chloride 106 (98-107) mmol/L Carbon Dioxide 25 (22-30) mmol/L Anion Gap 7 (4-12) mmol/L BUN 11 (7-17) mg/dL Creatinine 1.08 H (0.7-1.0) mg/dL Estim Creat Clear Calc 82 ml/min Estimated GFR 60 (59 - ) Glucose 111 H (65-110) mg/dL Calcium 10.0 (8.4-10.2) mg/dL Magnesium 2.3 (1.6-2.3) mg/dL Total Bilirubin 0.5 (0.2-1.3) mg/dL AST 27 (14-36) U/L ALT 33 (6-35) U/L Alkaline Phosphatase 78 (38-126) U/L Troponin I < 0.012 < 0.012 (0.000-0.034) ng/mL Total Protein 8.6 H (6.3-8.2) g/dL Albumin 4.7 (3.5-5.1) g/dL Lipase 63 (23-300) U/L Beta HCG, Quant 478.72 mIU/ML <German Oconnell DO - Last Filed: 05/03/25 03:10> Imaging Data Radiologist's impression: ITS Impressions Obstetrics Ultrasound 05/02/25 18:39 IMPRESSION: 1. No well-defined contrite trying gestational sac is seen. 2. 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 No definite adnexal mass. Tiny free fluid. Possibility of ectopic with endometrial thickening secondary to ectopic should be considered. Please correlate with quantitative hCG level. Ectopic is not ruled out although there is no direct evidence of direct. 3. Above mentioned findings were conveyed to attending physician by phone call at 6:46 PM. <Anuja Lozada PA-C - Last Filed: 05/02/25 17:49> ITS Impressions Obstetrics Ultrasound 05/02/25 18:39 IMPRESSION: 1. No well-defined contrite trying gestational sac is seen. 2. 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 No definite adnexal mass. Tiny free fluid. Possibility of ectopic with endometrial thickening secondary to ectopic should be considered. Please correlate with quantitative hCG level. Ectopic is not ruled out although there is no direct evidence of direct. 3. Above mentioned findings were conveyed to attending physician by phone call at 6:46 PM. <German Ocnonell DO - Last Filed: 05/03/25 03:10> Discharge Plan Discharge Clinical Impression: Chest pain Qualifiers: Chest pain type: other chest pain Qualified Code(s): R07.89 - Other chest pain Qualifiers: Weeks of gestation: less than 8 weeks Qualified Code(s): Z3A.01 - Less than 8 weeks gestation of <Anuja Lozada PA-C - Last Filed: 05/02/25 17:49> Patient Disposition: Home <Anuja Lozada PA-C - Last Filed: 05/02/25 17:49> Condition: Stable <JERRY Casey Last Filed: 05/02/25 17:49> Instructions: Antibiotic Form, Chest Pain (ED), (ED) <JERRY Casey Last Filed: 05/02/25 17:49> Additional Instructions: Blood work was reassuring. Ultrasound was unable to visualize the embryo which is not necessarily concerning at this time, he will need a repeat hCG blood draw in 2 days to further determine where your potentially is. Follow-up with her OB in the next week for re-evaluation. Return the ED for any new worsening symptoms. Ultrasound 1. No well-defined contrite trying gestational sac is seen. 2. 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 No definite adnexal mass. Tiny free fluid. Possibility of ectopic with endometrial thickening secondary to ectopic should be considered. Please correlate with quantitative hCG level. Ectopic is not ruled out although there is no direct evidence of direct. 3. Above mentioned findings were conveyed to attending physician by phone call at 6:46 PM. <JERRY Casey Last Filed: 05/02/25 17:49> Patient Language: Welsh <Anuja Lozada PA-C - Last Filed: 05/02/25 17:49> Prescriptions: No Action cetirizine 10 mg tablet 10 mg PO DAILY PRN meclizine 25 mg tablet 25 mg PO BID PRN clindamycin phosphate [Clindagel] 1 % gel, once daily 1 applic topical DAILY Qty: 75 0RF pyridoxine (vitamin B6) 100 mg tablet 100 mg PO DAILY Qty: 1 0RF rizatriptan 5 mg tablet See Rx Instructions PO .COMPLEX Qty: 1 0RF Rx Instructions: take 1 tablet at onset of headache; if no relief, may repeat 1 tablet after at least 2 hrs PO cholecalciferol (vitamin D3) 25 mcg (1,000 unit) capsule 25 mcg PO DAILY Qty: 1 0RF magnesium 200 mg tablet 200 mg PO DAILY Qty: 1 0RF ferrous gluconate 18 mg iron capsule 18 mg PO DAILY Qty: 1 0RF (DME) FreeStyle Dav 2 Sensor Kit See Rx Instructions .Route Qty: 2 5RF Rx Instructions: As directed daily labetalol 100 mg tablet 100 mg PO Q12H Qty: 60 11RF <Anuja Lozada PA-C - Last Filed: 05/02/25 17:49> Other Ambulatory Orders: Beta HCG Quantitative (Routine) Timeframe: 2 Days Location: Determined by Patient Ordered By: German Oconnell <Anuja Lozada PA-C - Last Filed: 05/02/25 17:49> Follow-up/Referrals: Yuli Morocho PA-C [Primary Care Provider, Family Practice] <Anuja Lozada PA-C - Last Filed: 05/02/25 17:49>
--- OUTSIDE RECORDS SUMMARY | 2025-05-02 20:16 | XMS_ITS | Clinical Summary ---
Author Organization [facility] Address [address] [place] [address] Care Team Providers Care Security Door Installer Name Role Phone Darline Hernandez MD Primary Care Provider [phone] Source Comments [facility] [employer],non-owned Affiliates and Associated Physician Practices is amultiple site organization consisting of ambulatory clinics and hospital sitesin [place], [place], [place] and [place]. This disclosure is being madepursuant to the Care Everywhere program and may not contain all information available regarding this patient. Last updated 18.[facility] [employer] Allergies Active Allergy Reactions Criticality Noted Date Comments Sulfa Drugs Rash Low 09/05/2012 Medications * This document contains information received from the source organization and may not represent a complete record from that organization. * Be aware that medications may not be up to date on this document. Alwaysverify current medications with the patient. fludrocortisone (FLORINEF) 0.1 MG tabletIndication s:Dizziness Take 1 tablet by mouth once daily 30 tablet 02/22/2018 Active Active Problems Problem Noted Date Diagnosed Date Dizziness 12/23/2013 Overview (12/23/2013): History of dizziness associated with feeling like she will pass out. Work up by Cardiology and Neurology was essentially negative. She does have a history of headaches with auras. She is on Florinef and this has helped. She denies panic attacks. General counseling for initi ation of other contraceptive measures 12/23/2013 Overview (12/23/2013): MOM is not aware. She is using condoms only and refuses another method. Counseling and recommendation for a spermicide was discussed. 12/23/2013 Family History Medical History Relation Name Comments Heart Disease Maternal Grandfather heart attack before age 50. In 60's and living Anxiety Disorder Other anxiety iss ues with and school MOM Diabetes Other Paternal GGM Arthritis Paternal Grandfather COPD - Chronic Obstructive Pulmonary Disease Paternal Grandmother Alcohol abuse Neg Hx Depression Neg Hx Relation Name Status Comments Maternal Grandfather Other Paternal Grandfather Paternal Grandmother Social History Tobacco Use Types Packs/Day Years Used Date Smoking Tobacco: Never Assessed Comments Unknown Sex and Gender Information Value Date Recorded Sex Assigned at Not on file Legal Sex Female 11:51 AM CDT Gender Identity Not on file Sexual Orientation Not on file Last Filed Vital Signs Vital Sign Reading Time Taken Comments Blood Pressure 160/90 08/14/2017 12:58 PM CDT Pulse 90 08/14/2017 12:58 PM CDT Temperature 36.5 C (97.7 F) 08/14/2017 12:58 PM CDT Respiratory Rate 16 05/06/2016 11:36 AM RECREATION CENTER DIRECTOR Oxygen Saturation 100% 09/27/2012 1:47 PM CDT Inhaled Oxygen Concentration - - Weight 70.8 kg (156 lb) 08/14/2017 12:58 PM CDT Height 165.1 cm (5' 5) 05/06/2016 11:36 AM RECREATION CENTER DIRECTOR Body Mass Index 25.96 05/06/2016 11:36 AM RECREATION CENTER DIRECTOR Plan of Treatment Health Maintenance Due Date Last Done Comments HIV SCREENING 01/03/2011 HEPATITIS C SCREENING 12/30/2013 DTAP/TDAP/TD VACCINES (1 - Tdap) 01/03/2015 HEPATITIS B VACCINE (1 of 3 - 19+ 3-dose series) 01/03/2015 HPV VACCINE (1 - 3-dose SCDM series) 01/03/2023 DEPRESSION SCREENING 05/22/2024 COVID-19 VACCINE (1 - 2024-2 6 season) 2025 INFLUENZA VACCINE (#1) 2025 ZOSTER VACCINE (1 of 2) 01/03/2046 HIB VACCINE Aged Out No longer eligi ble based on patient's age to complete this topic MENINGOCOCCAL (Group B) VACC INE SHARED DECISION-MAKING Aged Out No longer eligibl e based on patient's age to complete this topic MENINGOCOCCAL GROUPS A/C/Y/W VACCINE Aged Out No longer eligible b ased on patient's age to complete this topic PNEUMOCOCCAL VACCINE Aged Out No long er eligible based on patient's age to complete this topic Insurance AETNA AETNA Care Teams Security Door Installer Relationship Specialty Start Date End Date Darline Hernandez MD [id number] [id number] PCP - General 02/19/18
[2025-05-02 20:42] LABS: Magnesium 2.3 mg/dL (1.6-2.3)
[2025-05-02 21:07] LABS: Troponin I < 0.012 ng/mL (0.000-0.034)
== END 2025-05-02 21:41 | disposition home or self-care (01) ==
PROVIDERS: Emergency Medicine; Physician Assistant; Emergency Provider Student in an Organized Health Care Education/Training Program; PCP Student in an Organized Health Care Education/Training Program
DX: Z79.899 Other long term (current) drug therapy (principal); R07.89 Other chest pain; O10.911 Unspecified pre-existing hypertension complicating pregnancy, first trimester; O99.891 Other specified diseases and conditions complicating pregnancy; R00.0 Tachycardia, unspecified; O99.411 Diseases of the circulatory system complicating pregnancy, first trimester; I45.10 Unspecified right bundle-branch block; R94.31 Abnormal electrocardiogram [ECG] [EKG]; Z3A.01 Less than 8 weeks gestation of pregnancy
CPT/HCPCS: 36415; 76801; 76817; 80053; 83690; 83735; 84484; 84702; 85025; 85380; 85610; 85730; 93005; 99284

== ENCOUNTER 2025-05-09 15:27 | Outpatient (CLI) | payer BC, SELFPAY ==
--- OUTSIDE RECORDS SUMMARY | 2025-05-09 15:31 | XMS_ITS | Clinical Summary ---
Author Organization [facility] [address] Address [address] [place] [address] Care Team Providers Care Manager Fraud Name Role Phone Valarie Verma MD Primary Care Provider Allergies Active Allergy Reactions Criticality Noted Date Comments Ciprofloxacin Rash Medium 05/18/2018 Sulfa (Sulfonamide Antibiotics) Rash Medium 08/20 Medications labetalol (NORMODYNE,TRANDATE ) 100 mg tablet Take 1 tablet (100 mg total) by mouth 2 (two) times a day Active ondansetron (ZOFRAN) 4 mg tablet Take 1 tablet (4 mg total) by mouth every 8 (eight) hours as needed for nausea or vomiting 20 tablet 4 Active pyridoxine (VITAMIN B6) 25 mg tablet Take 1 tablet (25 mg total) by mouth 2 (two) times a day Active magnesium gluconate 200 mg tabletIndications:h ypomagnesemia Take 1 tablet (200 mg total) by mouth 2 (two) times a day Active rizatriptan ASSISTANT MERCHANDISE MANAGER (MAXALT-ASSISTANT MERCHANDISE MANAGER) 5 mg disintegrating tabletIndications:M igraine Take 1 tablet (5 mg total) by mouth once as needed for migraine May repeat in 2 hours if unresolved. Do not exceed 30 mg in 24 hours. 9 tablet 1 5 10/11/19 26 Active IRON, FERROUS SULFATE, ORAL 4 Active nortriptyline (PAMELOR) 25 mg capsule Take 1 capsule (25 mg total) by mouth nightly Active cholecalciferol (VITAMIN D-3) 2000 unit capsule 1 capsule (2,000 Units total) Active acidophilus-pectin, citrus 100 million cell-10 mg capsule Take by mouth Active Active Problems Problem Noted Date Diagnosed Date Obesity (BMI 35.0-39.9 without comorbidity) 09/20 IIH (idiopathic intracranial hypertension) 07/03 Vestibular migraine 07/02/2024 Assessment & Plan (08/26/2024 11:28 AM CDT): -referred by neurology to r/o papilledema with c/f IIH +FHx IIH: father -pt denies any pulsatile tinnitus; has had chronic ear infections that improve with oral steroids/abx; established with ENT already -denies TVL +h/o migraines -ONH tilted OU however with distinct rim margins and healthy tissue; no heme or vessel obscuration OU +moderate myope, likely tilted myopic discs -ed pt on normal findings today; will send letter to Dr. Baxter with update -RTC ALFONZO with any vision changes/TVL -follow prn PND (paroxysmal nocturnal dyspnea) 05/24/2022 Hypersomnolence 05/24/2022 Bicuspid aortic valve 06/29/2018 Essential hypertension 05/18/2018 Palpitations 05/18/2018 Atypical chest pain 05/18/2018 Anxiety 05/18/2018 Syncope and collapse 05/18/2018 Encounters Date Type Department Care Team Description 04/28/2025 Orders Only [facility] [address] [facility] [address] [place] [id number] Khushboo Koch MD Amenorrhea (Primary Dx) from Last 3 Months Medical History Medical History Date Comments Hypertension Syncope Dizziness Coronary artery disease 2017-bicuspid aeortic va lve Migraine 2011-occular migraine Migraines 2022 GERD (gastroesophageal reflux disease) 2021 Anxiety 2012 Family History Medical History Relation Name Comments Hypertension Brother 1 Hypertension Father Diabetes Maternal Grandfather Heart attack Maternal Grandfather Heart disease Maternal Grandfather Hypertension Maternal Grandfather Hearing loss Paternal Grandfather Heart attack Paternal Grandfather Hypertension Paternal Grandfather Stroke Paternal Grandfather COPD Paternal Grandmother Relation Name Status Comments Brother 1 Alive Brother 2 Alive Father Alive Maternal Grandfather Alive Mother Alive Paternal Grandfather Alive Paternal Grandmother Sister 1 Alive Sister 2 Alive Social History Tobacco Use Types Packs/Day Years Used Date Smoking Tobacco: Never Passive Smoke Exposure: Never Smokeless Tobacco: Never Tobacco Cessation:Counseling Given: Not Answered Alcohol Use Standard Drinks/Week Comments Yes 4 (1 standard drink = 0.6 oz pur e alcohol) Comments Unknown Sex and Gender Information Value Date Recorded Sex Assigned at Not on file Legal Sex Female 3:25 PM ABSORPTION OPERATOR Gender Identity Not on file Sexual Orientation Not on file Last Filed Vital Signs Vital Sign Reading Time Taken Comments Blood Pressure 130/86 10/10/2024 8:36 AM CDT Pulse 97 10/10/2024 8:36 AM CDT Temperature 36.4 C (97.5 F) 08/06/2024 8:03 AM CDT Respiratory Rate 15 05/13/2020 1:26 PM ABSORPTION OPERATOR Oxygen Saturation 97% 10/10/2024 8:36 AM CDT Inhaled Oxygen Concentration - - Weight 98.4 kg (217 lb) 10/10/2024 8:36 AM CDT Height 165.1 cm (5' 5) 10/10/2024 8:36 AM CDT Body Mass Index 36.11 10/10/2024 8:36 AM CDT Plan of Treatment Health Maintenance Due Date Last Done Comments Cervical Cancer Screening 1996 Depression Screening 1996 Hepatitis C Screening 1996 DTaP/Tdap/Td Vaccine (1 - Tdap) 01/03/2007 Varicella Vaccines (1 of 2 - 13+ 2-dose series) 01/03/2009 Hepatitis B Screening 01/03/2014 Regular Well Visit/Exam 18-64 01/03/2014 HPV Vaccines (1 - 3-dose SCD M series) 01/03/2023 Influenza Vaccine (#1) 2025 Pneumococcal vaccine <65 Aged Out No longer eligible based on patient's age to complete this topic Insurance [place] [address] [facility] H[facility]/PPO Address: [address] CHOICE [employer] [facility] HMO/PPO Address: [address] [address] [address] ACCESS CHOICE [employer] ACCESS CHOICE [employer] ACCESS CHOICE Care Teams Manager Fraud Relationship Specialty Start Date End Date Valarie Verma MD PCP - General Family Medicine 04/30/18
--- OUTSIDE RECORDS SUMMARY | 2025-05-09 15:31 | XMS_ITS | Clinical Summary ---
Author Organization [facility] Address [address] [place] [address] Care Team Providers Care Catering Staff Member Name Role Phone Darline Hernandez MD Primary Care Provider [phone] Source Comments [facility] [employer],non-owned Affiliates and Associated Physician Practices is amultiple site organization consisting of ambulatory clinics and hospital sitesin [place], [place], [place] and [place]. This disclosure is being madepursuant to the Care Everywhere program and may not contain all information available regarding this patient. Last updated 18.[facility] [employer] Allergies Active Allergy Reactions Criticality Noted Date [...] CDT Respiratory Rate 16 05/06/2016 11:36 AM DATA COLLECTION INTERVIEWER Oxygen Saturation 100% 09/27/2012 1:47 PM CDT Inhaled Oxygen Concentration - - Weight 70.8 kg (156 lb) 08/14/2017 12:58 PM CDT Height 165.1 cm (5' 5) 05/06/2016 11:36 AM DATA COLLECTION INTERVIEWER Body Mass Index 25.96 05/06/2016 11:36 AM DATA COLLECTION INTERVIEWER Plan of Treatment Health Maintenance Due Date [...] this topic Insurance A[employer] AET[employer] Care Teams Catering Staff Member Relationship Specialty Start Date End Date Darline Hernandez MD [id number] [id number] PCP - General 02/19/18
[2025-05-09 15:43] LABS: Hematocrit 42.0 % (37.0-47.0); Hemoglobin 14.0 g/dL (12.0-15.0); Immature Granulocyte Percent A 0.9 % (0-0.5); Lymphocytes Absolute Auto 1.77 K/mm3 (0.9-3.2); Mean Corpuscular HGB Conc 33.3 g/dl (32-36); Mean Corpuscular Hemoglobin 30.4 pg (26-34); Mean Corpuscular Volume 91.3 fl (80-100); Nucleated Red Blood Cells Absolute Auto 0.000 K/mm3 (0.0-0.012); Nucleated Red Blood Cells Perc 0.0 % (0.0-0.2); Platelet Count Result 266 k/mm3 (150-375); Red Blood Count 4.60 M/mm3 (4.2-5.4); White Blood Count 7.6 K/mm3 (4.5-10.0)
[2025-05-09 16:04] LABS: Alanine Aminotransferase 62 U/L (6-35); Albumin Level 4.7 g/dL (3.5-5.1); Alkaline Phosphatase 59 U/L (38-126); Anion Gap 11 mmol/L (4-12); Aspartate Amino Transferase 38 U/L (14-36); Bilirubin,Total 0.4 mg/dL (0.2-1.3); Blood Urea Nitrogen 12 mg/dL (7-17); Calcium 9.4 mg/dL (8.4-10.2); Carbon Dioxide 23 mmol/L (22-30); Chloride 104 mmol/L (98-107); Estimated Glomerular Filt Rate 53; Glucose 99 mg/dL (65-110); Iron 62 ug/dL (37-170); Potassium 3.9 mmol/L (3.4-5.0); Sodium 138 mmol/L (137-145); Total Protein 8.4 g/dL (6.3-8.2)
[2025-05-09 16:09] LABS: Hemoglobin A1C 5.0 % (<5.7)
[2025-05-09 16:14] LABS: Percent Iron Saturation 17 % (20-50)
[2025-05-09 16:24] LABS: Free T4 Free Thyroxine 0.96 ng/dL (0.78-2.19)
[2025-05-09 16:40] LABS: Thyroid Stimulating Hormone 2.240 uIU/mL (0.465-4.680)
[2025-05-09 16:47] LABS: Ferritin 23.60 ng/mL (6.24-137)
[2025-05-09 17:16] LABS: Vitamin B12 592.0 pg/mL (239-931)
== END 2025-05-09 15:28 | disposition home or self-care (01) ==
LOC: ANHLAB 15:29
PROVIDERS: PCP Student in an Organized Health Care Education/Training Program; Visit Provider Student in an Organized Health Care Education/Training Program
DX: Z13.1 Encounter for screening for diabetes mellitus (principal); Z13.220 Encounter for screening for lipoid disorders; Z34.90 Encounter for supervision of normal pregnancy, unspecified, unspecified trimester; I10 Essential (primary) hypertension; F41.9 Anxiety disorder, unspecified; R51.9 Headache, unspecified; R53.83 Other fatigue; E55.9 Vitamin D deficiency, unspecified
CPT/HCPCS: 36415; 80053; 82306; 82607; 82728; 82746; 83036; 83540; 83550; 84439; 84443; 84702; 85025